=== PATIENT | male | born 1980 | race Caucasian/White ===

== ENCOUNTER 2022-08-02 16:11 | Emergency (ER) | payer MEDICAID ==
[~2022-08-02] VITALS: Ht 175.3 cm; Wt 68.2 kg
[~2022-08-02 16:11] MED LIST: NOCURR
[2022-08-02 17:31] LABS: COVID AG,FIA SOURCE NASAL SWAB
[2022-08-02 18:08] LABS: INFLUENZA TYPE B NEGATIVE FOR TYPE B (NEGATIVE)
[2022-08-02 18:18] LABS: INFLUENZA TYPE A POSITIVE FOR TYPE A (NEGATIVE)
[2022-08-02] MEDS ORDERED: ACETAMINOPHEN 500 MG TABLET PO ONE (18:30)
[2022-08-02 18:45] VITALS: BP 124/89
[2022-08-02] MEDS ORDERED: OSEL75 PO (18:55)
== END 2022-08-02 19:26 | disposition home or self-care (01) ==
LOC: EMS 16:11
DX: J10.1 Influenza due to other identified influenza virus with other respiratory manifestations (principal); Z20.822 Contact with and (suspected) exposure to COVID-19
CPT/HCPCS: 87804; 99283

== ENCOUNTER 2024-04-14 13:47 | Emergency (ER) | payer MEDICAID ==
[~2024-04-14] VITALS: Ht 170.2 cm; Wt 70.5 kg
[~2024-04-14 13:47] MED LIST changes: -NOCURR; +OSEL75CA45 PO
[2024-04-14 13:51] VITALS: TEMP 98
[2024-04-14] MEDS: MORPHINE SULFATE 4 MG/ML SYRINGE IVP ONE (14:10)
[2024-04-14] MEDS: BACITRACIN 0.9 GM PACKET OINTMENT TP ONE (14:16)
[2024-04-14] MEDS: PERTUSS(ACELL),DIPH,TET/PF 0.5 ML SYRINGE [ADULT] IM. ONE (14:17)
[2024-04-14] MEDS: MORPHINE SULFATE 2 MG/ML SYRINGE IVP ONE (15:30)
[2024-04-14] MEDS: KETOROLAC TROMETHAMINE 30 MG/ML VIAL IVP ONE (15:30)
[2024-04-14 15:36] VITALS: BP 125/84; PULSE 70; RESP 18
[2024-04-14] MEDS ORDERED: OXYC5 PO (16:35)
[2024-04-14] MEDS ORDERED: IBUP-1492 PO (16:35)
[2024-04-14] MEDS ORDERED: ACET-3385 PO (16:35)
== END 2024-04-14 17:15 | disposition home or self-care (01) ==
LOC: EMS 13:47
DX: S61.011A Laceration without foreign body of right thumb without damage to nail, initial encounter (principal); W20.8XXA Other cause of strike by thrown, projected or falling object, initial encounter; Y93.89 Activity, other specified; Y92.89 Other specified places as the place of occurrence of the external cause; Y99.8 Other external cause status
CPT/HCPCS: 99284; 96374; 96375; 73110; 73130; 90715; 90471; 12001; 96376; J1885; J2270 ×2